=== PATIENT | male | born 1965 | race Caucasian/White ===

== ENCOUNTER 2016-08-02 10:14 | Emergency (ER) | payer MEDICAID ==
[~2016-08-02] VITALS: Ht 175.3 cm; Wt 79.5 kg
[2016-08-02 10:26] VITALS: BP 150/107; PULSE 70; RESP 18; O2SAT 97
--- NOTE | 2016-08-02 10:33 | ED.REPORT ---
HPI-Hand Prob/Inj Date of Service August 02, 2016 ED Provider: Dayo Carter MD The patient is a 51 year old male who presents to the emergency department complaining of a left thumb laceration that occurred last night around 1800. The patient was using a sharp knife to separate two frozen steaks when he accidentally cut his left thumb. He complains of numbness on the tip of his thumb. He denies weakness. He denies any other injuries. His tetanus is not up to date. Nursing Notes Stated Complaint: LEFT THUMB LACERATION Chief Complaint: Laceration Nursing Notes Reviewed: Yes Allergies: Coded Allergies: No Known Allergies (Unverified Allergy, Unknown, 08/02/16) General Time Seen by Provider: 10:33 Chief Complaint Finger injury left Hx Obtained From: Patient Arrived By: Walk-in Onset Occurred: Yesterday Symptom Duration: Since onset Progression Since Onset: Constant Location: Right Hand: : Finger... (Thumb) Quality: Painful Severity: Current: Mild Severity: Maximum: Moderate Immunizations: Tetanus not up to date Recent Healthcare: No recent doctor visit, No recent hospitalization Similar Sx Previous: No Past Medical History Past Surgical History Back surgeries Family History Noncontributory Smoking History Current Every Day Smoker Social History Alcohol Use: In recovery Drug Use: In recovery Other Social History: Local resident Occupation Works at [employer] Status Independent Review of Systems Review of Systems Note: +laceration Musculoskeletal: Reports: Extremity pain Neurologic: Reports: Numbness, Denies: Focal weakness Complete sys rev & neg: except as marked. Physical Exam Initial Vital Signs Vital Signs (First) Date Time Temp Pulse Resp B/P Pulse Ox O2 Delivery O2 Flow Rate FiO2 08/02/16 10:26 36.1 70 18 150/107 97 Room Air Initial VS: Reviewed Head / Eyes: Atraumatic, Normocephalic, PERRL ENT: Mucous membranes moist, Conjunctiva normal, No scleral icterus Neck: Supple, Non-tender, Full range of motion Respiratory: No respiratory distress Lymphatic: No lymphadenopathy Extremities: Vascular intact, Neuro intact, No swelling, No tenderness Skin: Warm, Dry, No cyanosis Neurologic: Alert, Oriented, Nonfocal Psychiatric: Mood/affect normal, Behavior normal, Normal thought content Wrist / Hand: Neurologic intact, Vascular intact There is a transverse laceration at the IP joint on the ulnar aspect of the left thumb about 1 cm in length. General/Constitutional: Awake, Alert Procedures Laceration Management Time: 11:24 Procedure Performed by: ED physician Consent / Setup / Site Prep: Consent from patient, Time-out performed, Hand hygiene observed Location of Wound: Left thumb Wound Length: 1 cm Local Anesthesia: Lidocaine 1% Digital Block: No Wound Preparation: Betadine Debridement: None Irrigation: Copious Foreign Body Explore / Removal: Explored for foreign body Undermining / Margins: Flaps aligned Repair Skin: Nylon (4-0) # Sutures - Skin: 2 (interrupted) Closure Layers: 1 Post-Procedure / Complications: Antibiotic oint applied, Dressing applied, No complications, Condition improved, Tolerated procedure well, Patient stable Re-Eval/Medical Decision Med Decision/Clinical Course When I came back in the room to do the repair, the patient says that the numbness in his fingertip had resolved. Re-Evaluation/Progress #1: Time of Eval: 10:41 Re-Evaluation/Progress Note: Discussed plan for tetanus shot, repair, and plan for discharge. All questions were addressed. Re-Evaluation/Progress #2: Time of Eval: 11:24 Re-Evaluation/Progress Note: Completed laceration repair. Counseled Regarding: Diagnosis, Need for follow-up, When/why to return to ED Discharge & Departure Primary Impression: Laceration Disposition: Home Discharge Condition All VS Reviewed: Yes Condition: Stable Patient Instructions: Finger Laceration (ED) Additional Instructions: Thank you for entrusting us with your care today. You were given a tetanus up date in the emergency department today. You will need your next update in 10 years. Keep the wound clean and covered. When working you should cover the wound with a bandage and make sure to wear gloves. You will need to have the suture removed in 10 days. You can have the sutures removed in the emergency department, urgent care, or by your regular doctor. Seek care for any new or concerning symptoms, specifically any signs of infection: redness, swelling, pain, pus-like drainage, fever or chills. Referrals: Raza Vargas MD (PCP) Scribe Attestation Portions of this note were transcribed by Stephanie Saunders. I, Dr. Carter personally performed the history, physical exam and medical decision-making; I reviewed and confirmed the accuracy of the information in the transcribed note. Signed by: Oleg Georges, 08/02/2016 at 1140. copies to: Raza Vargas MD, Kirk H MD August 02, 2016 10:32 Stephanie Saunders August 02, 2016 10:34
[2016-08-02] MEDS ORDERED: TdaP Vaccine 0.5 mL Inj IM ONE (11:25)
[2016-08-02 11:50] VITALS: BP 150/107; PULSE 70; RESP 18; O2SAT 97
== END 2016-08-02 12:00 | disposition home or self-care (01) ==
LOC: SED 10:14
DX: S61.012A Laceration without foreign body of left thumb without damage to nail, initial encounter (principal); W26.0XXA Contact with knife, initial encounter; Y93.89 Activity, other specified; Y92.9 Unspecified place or not applicable; Y99.8 Other external cause status; F17.200 Nicotine dependence, unspecified, uncomplicated; Z23 Encounter for immunization

== ENCOUNTER 2016-08-10 11:03 | Emergency (ER) | payer SELFPAY ==
[~2016-08-10] VITALS: Ht 177.8 cm; Wt 218.2 kg
[2016-08-10 11:08] VITALS: BP 145/97; PULSE 84; RESP 16; O2SAT 97
--- NOTE | 2016-08-10 11:22 | ED.REPORT ---
HPI-General Illness Date of Service Aug 10, 2016 ED Provider: Shalom Casillas PA-C Alex is an otherwise healthy 51-year-old male presenting with chief complaint of a possible infected laceration. Patient reports he was seen in this department 9 days ago for a wound to his left thumb that was proximal with 24 hours old. The wound was closed with sutures and his tetanus shot was updated. He was not placed on antibiotics. He has been soaking the thumb in hydrogen peroxide. Today he reports increasing pain in the thumb as well as redness. Denies discharge. Denies comorbidities such as diabetes, HIV or immunosuppressive drugs. Nursing Notes Stated Complaint: SUTURE REMOVAL Chief Complaint: Staple/Suture Removal Nursing Notes Reviewed: Yes Allergies: Coded Allergies: No Known Allergies (Unverified Allergy, Unknown, 08/10/16) Scheduled Cephalexin (Cephalexin) 500 Mg Tablet 500 MG PO QID General Time Seen by MD: 11:09 Chief Complaint Other (laceration wound check) Past Medical History Past Surgical History Back surgeries Family History Noncontributory Smoking History Current Every Day Smoker Social History Alcohol Use: In recovery Drug Use: In recovery Other Social History: Local resident Occupation Works at [employer] Status Independent Review of Systems Negative unless stated otherwise in history of present illness Physical Exam General: Well appearing, well developed, well nourished, no acute distress. Left thumb: Approximately 2 cm closed laceration on the medial aspect of the distal phalanx. [address] Wound appears clean and dry. Minimal redness surrounding. Negative discharge. Head: Atraumatic, normocephalic. Eyes: No scleral icterus or injection. No discharge. Vision grossly intact. ENT: Voice clear, hearing grossly intact. Respiratory: No respiratory distress, no increased work of breathing. Speaks in complete sentences. Skin: Warm and dry. Neurological: Grossly nonfocal. Psychological: alert and oriented. Speech appropriate, linear and logical. Behavior appropriate. Vital Signs Vital Signs Date Time Temp Pulse Resp B/P Pulse Ox O2 Delivery O2 Flow Rate FiO2 08/10/16 11:47 36.7 84 16 145/97 97 Room Air 08/10/16 11:08 36.7 84 16 145/97 97 Room Air Initial VS: Vital signs abnormal (elevated blood pressure) Re-Eval/Medical Decision Med Decision/Clinical Course Otherwise healthy 51-year-old male presents 9 days status post laceration closure on his left thumb, concerned about infection. Admits increasing pain. Denies discharge, fever, vomiting, abdominal pain. Physical examination reveals a proximally to send her laceration on his left thumb with [address] Slight surrounding redness, tenderness. Vital signs are normal. I discussed this case with Dr. Rodriguez who met with and evaluated and examined the patient. We agree that appears to have the beginnings of an infection. Removed sutures, which produced a small amount of pus. Start the patient on cephalexin 500 mg 4 times a day 5 days. Dressed with antibiotic ointment and Band-Aid. Advised wound care, primary care follow-up, emergency return precautions. The patient verbalizes understanding of and consent to the plan. Discharge & Departure Primary Impression: Laceration of thumb with infection Encounter type: initial encounter Laterality: left Qualified Code: S61.012A - Laceration without foreign body of left thumb without damage to nail , initial encounter Disposition: Home Discharge Condition All VS Reviewed: Yes Condition: Stable Patient Instructions: Wound Infection (DC) Additional Instructions: Evaluation in the emergency department for infected left thumb includes history of physical examination which suggests that you are in fact are starting to have infection in this wound. We have removed the stitches and dressed with antibiotic ointment and a Band-Aid. Wash the wound one to 2 times a day and redress it with antibiotic ointment and a Band-Aid I will write you a prescription for Keflex to be taken 4 times a day for the next 5 days. This should stop infection. Follow-up with your primary care provider if this is not resolving in 4-5 days, or return to emergency department for any new or worsening symptoms including increasing redness, swelling, discharge. Referrals: Tessa Lynn MD (PCP) EDSupervising Provider for APC: La Rodriguez MD Attending Statement Patient seen and examined with Mr. Casillas. Likely early infection started recommended taking sutures out today starting antibiotics follow-up if worse. agree with Documentation otherwise as above copies to: Tessa Lynn MD, Seth PA-C Aug 10, 2016 11:22 La Rodriguez MD Aug 10, 2016 18:22
[2016-08-10] MEDS ORDERED: CEPH500T PO (11:43)
[2016-08-10 11:47] VITALS: BP 145/97; PULSE 84; RESP 16; O2SAT 97
== END 2016-08-10 11:48 | disposition home or self-care (01) ==
LOC: SED 11:03
DX: S61.012A Laceration without foreign body of left thumb without damage to nail, initial encounter (principal); X58.XXXA Exposure to other specified factors, initial encounter; Y93.9 Activity, unspecified; Y92.9 Unspecified place or not applicable; Y99.9 Unspecified external cause status; L08.9 Local infection of the skin and subcutaneous tissue, unspecified; F17.200 Nicotine dependence, unspecified, uncomplicated; Z48.02 Encounter for removal of sutures